=== PATIENT | female | born 2000 | race African-American/Black ===

== ENCOUNTER 2023-01-29 09:59 | Emergency (ER) | payer OTHER ==
[~2023-01-29] VITALS: Ht 180.3 cm; Wt 62.6 kg
[2023-01-29 11:19] LABS: *URINE HCG, QUAL NEGATIVE (NEGATIVE)
[2023-01-29] MEDS ORDERED: IBUP-1958 PO (11:23)
[2023-01-29] MEDS ORDERED: GUAI600T53 PO (11:23)
--- NOTE | 2023-01-29 11:25 | NUR ---
Patient discharged to home by Dr Pedroza in stable condition with brisk steady gait. Written and verbal after care instructions given. Patient verbalized understanding and compliance of instructions. Stressed follow up with primary doctor or return to ER for worsening s/s.
[2023-01-29 11:27] VITALS: BP 120/70
== END 2023-01-29 11:26 | disposition home or self-care (01) ==
LOC: ER 09:59
DX: J06.9 Acute upper respiratory infection, unspecified (principal); Z79.1 Long term (current) use of non-steroidal anti-inflammatories (NSAID); Z79.899 Other long term (current) drug therapy; Z20.822 Contact with and (suspected) exposure to COVID-19
CPT/HCPCS: 84703; A4663